=== PATIENT | male | born 1930 | race Caucasian/White ===

== ENCOUNTER 2018-11-26 08:59 | Inpatient (IN) ==
[2018-11-26] MEDS ORDERED: LEVSIN-SL SL ONE (09:27)
[2018-11-26] MEDS ORDERED: PROTONIX IV ONE (09:27)
[2018-11-26] MEDS ORDERED: SODIUM CHLORIDE 0.9% INJ ONE (09:27)
[2018-11-26] MEDS ORDERED: NS 1,000 ML IV ONE (09:28)
[2018-11-26] MEDS ORDERED: G.I. COCKTAIL PO ONE (09:28)
--- NOTE | 2018-11-26 09:41 | Diag Imaging Result Doc PS360 ---
EXAM: CHEST-1 VIEW HISTORY: weakness TECHNIQUE: Portable chest single view COMPARISON: 10/29/2015 FINDINGS: The lungs are well hyperexpanded. The heart is mildly enlarged. The vessels are not distended. There are no infiltrates. No effusion identified. 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 IMPRESSION: Mild cardiomegaly with hyperexpanded lungs. Electronically signed by Felix Gramajo 11/26/2018 9:39 AM
[2018-11-26 09:44] LABS: BASO# 0.03 X1000 (0.0-0.2); BASO% 0.4 % (0.0-0.8); EOS# 0.13 X1000 (0.0-0.7); EOS% 1.6 % (0.0-10.0); HEMATOCRIT 46.1 % (42.0-52.0); HEMOGLOBIN 15.4 g/dL (14.0-18.0); IMM GRAN# 0.03 X1000 (0.0-0.04); IMM GRAN% 0.4 % (0.0-0.5); LYMPH# 1.24 X1000 (1.2-3.4); LYMPH% 14.8 % (20.5-51.1); MCH 29.6 PG (27-31); MCHC 33.4 g/dL (33-37); MCV 88.7 FL (81-99); MONO# 1.73 X1000 (0.11-0.59); MONO% 20.7 % (1.7-9.3); MPV 10.8 FL (7.4-10.4); NEUT# 5.21 X1000 (1.4-6.5); NEUT% 62.1 % (42.2-75.2); PLT 291 X1000 (130-400); RDW 13.8 % (11.5-14.5); WBC 8.37 X1000 (4.8-10.8)
--- NOTE | 2018-11-26 09:45 | PROVIDER DOCUMENTATION ---
HPI-General Adult - General Chief Complaint: Diarrhea Stated Complaint: DIARRHEA Time Seen by Provider: 11/26/18 09:40 Source: patient, family Allergies/Adverse Reactions: Patient Allergies Allergy/AdvReac Type Severity Reaction Status Date / Time latex AdvReac ITCHING Verified 11/26/18 09:18 Home Medications: Home Medication List Medication Instructions Recorded Confirmed Last Taken Type Lisinopril 20 mg PO DAILY 02/09/18 11/26/18 07/27/18 07:00 History Warfarin [Coumadin] 3 mg PO DAILY 02/09/18 11/26/18 02/08/18 21:00 History Alprazolam [Xanax] 0.5 mg PO QHS 07/27/18 11/26/18 07/26/18 History Atenolol/Chlorthalidone 1 each PO DAILY 07/27/18 11/26/18 07/27/18 07:00 History [Atenolol-Chlorthalidone 50-25] Digoxin [Digitek] 125 mcg PO DAILY #60 tab 07/29/18 11/26/18 Unknown Rx - History of Present Illness -Gen Adult Nature of Presenting Problems: Pt. is [address] Osorio that presents with c/o 4 weeks of diarrhea. Pt. has been seen by his PCP and is taking immodium. He has a Hx of stomach CA and a AAA. He denies any pain or SOB. Pt. is reported to have gone to the bathroom 11 times in the last 6 hours with diarrhea. Pt. was recently on an antibiotic but family isn't sure why. Family at bedside reports he has been so weak that he has fallen several times in the last week. Family reports bruising to both right and left ribs. There are no other complaints reported at time of exam. Location of Pain/Injury: reports: none. denies: head, face, mouth, neck, chest , upper extremity, hand(s), abdomen, back, pelvis, genitalia, lower extremity, feet, upper body, lower body, generalized, other Pain Radiation: reports: no radiation. denies: arm(s), back, buttocks, chest, epigastric, feet, groin, jaw, flank (L), legs (lower), LLQ, LUQ, neck, periumbilical, flank (R), RLQ, RUQ, shoulder(s), scapula, scrotal, sternal notch , suprapubic, legs (upper), urethral, vaginal, other Quality of Pain: reports: none. denies: burning, sharp, tightness Severity: reports: severe. denies: mild, moderate Onset/Duration: reports: gradual, other (4 weeks) Timing: reports: still present, constant, changing over time, getting worse. denies: improving, gone now, intermittent Context/Activities at Onset: reports: light activity, recent trauma history ( recent falls). denies: recent emotional stress, possible bad food, sleep Modifying Factors: improves with: nothing Associated Symptoms: reports: diarrhea, malaise, weakness. denies: denies symptoms, anxiety, arm pain, back/neck pain, chest pain, constipation, cough, diaphoresis, dizziness, EENT symptoms, fatigue, fever/chills, genitourinary problems, headaches, heartburn, joint pain, loss of appetite, muscle aches, sinus congestion/drainage, nausea, rash, seizure, shortness of breath, sensory/ motor loss, pain with inspiration, swelling/mass in abdomen, syncope, vomiting, trouble walking, other Similar Symptoms Previously?: Yes Recently seen or treated by another doctor?: Yes Review of Systems - Adult - REVIEW OF SYSTEMS - ADULT Constitutional: reports: no symptoms reported Eyes: reports: no symptoms reported Ears, Nose, Mouth & Throat: reports: no symptoms reported Cardiovascular: reports: no symptoms reported Respiratory: reports: no symptoms reported Gastrointestinal: reports: see HPI, abdominal pain, diarrhea. denies: constipation, difficulty swallowing, vomiting Genitourinary: reports: no symptoms reported Musculoskeletal: reports: no symptoms reported Integumentary: reports: see HPI, other (Bruising noted to bilateral lateral chest osborne.). denies: hair loss, itching, rash Neurological: reports: no symptoms reported Psychiatric: reports: no symptoms reported Past History - Adult - PAST MEDICAL HISTORY-ADULT Review of Records: reports: Old Records Reviewed, Nursing Assessment Review, Medications Reviewed, Social history reviewed & non-contributory. Major Childhood Illnesses: reports: denies history Cardiovascular: reports: HTN Respiratory: reports: denies history Gastrointestinal: reports: denies history Obstetrical/Gynecological: reports: denies history Genitourinary: reports: denies history Musculoskeletal: reports: denies history Neurological: reports: denies history Psychiatric: reports: denies history Endocrine/Immune: reports: denies history Other Conditions: reports: denies history - PRIOR SURGERIES/PROCEDURES Surgical/Procedure History: reports: hernia repair - IMMUNIZATION STATUS Childhood Immunizations: See Nurse Assessment Flu Vaccine: See Nurse Assessment - FAMILY HISTORY Family History: reviewed, not pertinent - SOCIAL HISTORY Smoking: quit greater than 1 year Physical Exam-General - PHYSICAL EXAM-ADULT Initial Vital Signs Reviewed: Yes - CONSTITUTIONAL General Appearance: alert, mild distress, cachetic, thin. negative: anxious, slow to respond, obtunded, combative - EYES Eyes: PERRL/EOMI, pink conjunctivae. negative: conjuctival exudate, scleral icterus, subconjunctival hemorrhage - HEAD, EARS, NOSE, MOUTH & THROAT HENMT: normocephalic/atraumatic, moist mucous membranes. negative: angioedema, frontal tenderness, maxillary tenderness - NECK Neck: non-tender, full range of motion, supple, normal inspection. negative: lymphadenopathy, trachial deviation, thyromegaly - RESPIRATORY Respiratory: lungs clear, normal breath sounds. negative: crackles, rales, rhonchi, stridor, wheezing - CARDIOVASCULAR Cardiovascular: regular rate, rhythm, no edema, no JVD, bradycardia. negative: extra beats, friction rub, irregularly irregular - GASTROINTESTINAL (ABDOMEN) Abdominal Exam: non tender, soft, abnormal bowel sounds (Hyperactive). negative : distended, guarding, rigid, rebound, tenderness, hernia, mass - LYMPHATIC Lymphatic: no adenopathy. negative: axilla node tender, cervical node tenderness - MUSCULOSKELETAL Back Exam: normal inspection, no CVA tenderness, no vertebral tenderness. negative: decreased range of motion, swelling, vertebral tenderness Extremity: normal range of motion, non-tender, normal inspection. negative: deformity, erythema, inflammation, swelling, tenderness Peripheral Pulses: radial (R): 2+, radial (L): 2+ - SKIN Integumentary: ecchymosis (Bilateral lateral chest wall bruising.), pallor. negative: normal turgor, cyanosis, diaphoresis, erythema, rash, swelling, tenderness - NEUROLOGIC Neurologic: grossly normal, no motor/sensory deficits. negative: aphasia, facial droop, focal weakness, motor weakness, sensory deficit - PSYCHIATRIC Psych/Mental Status: normal mood/affect, normal thought content, normal thought process, oriented x 3. negative: anxious, paranoid, tearful Progress - PLAN OF CARE/RESULTS Progress/Plan/Lab Results: Vital Signs - 8 hr 11/26/18 09:21 Temperature 97.8 F Pulse Rate 56 L Respiratory Rate 20 Blood Pressure 79/54 Orders Category Date Time Status Saline Loc NOW Care 11/26/18 09:25 Active CHEST-1 VIEW [RAD] Stat Exams 11/26/18 09:26 Taken BLOOD CULTURE [BLDCUL] Stat Lab 11/26/18 09:26 Uncollected C DIFF ANTIGEN [STOOL] Stat Lab 11/26/18 09:27 Uncollected C DIFF TOXIN [STOOL] Stat Lab 11/26/18 09:27 Uncollected CBC WITH ELECTRONIC DIFF [HEME] Stat Lab 11/26/18 09:23 Results CK PROFILE [SP CHEM] Stat Lab 11/26/18 09:23 Received COMPREHENSIVE METABOLIC PANEL [CHEM] Stat Lab 11/26/18 09:23 Received CRP HIGH SENSITIVITY Stat Lab 11/26/18 09:23 Received LACTATE, PLASMA [CHEM] Stat Lab 11/26/18 09:23 Received LIPASE [CHEM] Stat Lab 11/26/18 09:23 Received PROTIME WITH INR [COAG] Stat Lab 11/26/18 09:23 Received PTT [COAG] Stat Lab 11/26/18 09:23 Received SED RATE [HEME] Stat Lab 11/26/18 09:33 Uncollected TROPONIN T Stat Lab 11/26/18 09:23 Received URINALYSIS W/POSS RFLX CULT [URINALYSIS] Stat Lab 11/26/18 09:26 Uncollected 0.9% Sodium Chloride Inj [Ns] 1,000 ml Med 11/26/18 09:28 Active IV 125 mls/hr Hyoscyamine Subl [Levsin-Sl] Med 11/26/18 09:27 Discontinued 0.125 mg SL NOW ONE Lido/[place]ona Alk/Al&mg Hydrox [G.i. Cocktail] Med 11/26/18 09:28 Discontinued 30 ml PO NOW ONE Pantoprazole [Protonix] Med 11/26/18 09:27 Discontinued 40 mg IV NOW ONE Sodium Chloride 0.9% Med 11/26/18 09:27 Discontinued 10 ml INJ NOW ONE EKG [EKG] Stat Ther 11/26/18 09:25 Ordered Laboratory Tests 02/11/26/18 11/26/18 09:23 09:23 09:23 WBC 8.37 RBC 5.20 Hgb 15.4 Hct 46.1 MCV 88.7 MCH 29.6 MCHC 33.4 RDW Std Deviation 13.8 Plt Count 291 MPV 10.8 H Immature Gran % (Auto) 0.4 Neut % (Auto) 62.1 Lymph % (Auto) 14.8 L [place] % (Auto) 20.7 H Eos % (Auto) 1.6 Baso % (Auto) 0.4 Immature Gran # (Auto) 0.03 Neut # (Auto) 5.21 Lymph # (Auto) 1.24 [place] # (Auto) 1.73 H Eos # (Auto) 0.13 Baso # (Auto) 0.03 ESR PT INR PTT (Actin FS) Sodium Potassium Chloride Carbon Dioxide Anion Gap BUN Creatinine Estimated GFR/1.73 m2 BUN/Creatinine Ratio Glucose Calculated Osmolality Calcium Total Bilirubin AST ALT Alkaline Phosphatase Creatine Kinase Creatine Kinase Index CK-MB (CK-2) Troponin T 0.036 C-React Prot High Sens Total Protein Albumin Globulin Albumin/Globulin Ratio Lipase Plasma Lactate 1.1 Urine Source Urine Color Urine Turbidity Urine pH Ur Specific [place] Urine Protein Ur Glucose (Stick) Ur Ketones (Stick) Urine Blood Urine Nitrite Urine Bilirubin Urobilinogen Dipstick Urine Leukocytes Urine WBC (Auto) Urine RBC (Auto) U Epithel Cells (Auto) Urine Bacteria (Auto) 11/26/18 11/26/18 11/26/18 09:23 09:23 09:23 WBC RBC Hgb Hct MCV MCH MCHC RDW Std Deviation Plt Count MPV Immature Gran % (Auto) Neut % (Auto) Lymph % (Auto) [place] % (Auto) Eos % (Auto) Baso % (Auto) Immature Gran # (Auto) Neut # (Auto) Lymph # (Auto) [place] # (Auto) Eos # (Auto) Baso # (Auto) ESR PT 42.3 H INR 4.07 PTT (Actin FS) 104.7 H Sodium 132 L Potassium 2.8 L Chloride 96 L Carbon Dioxide 22 L Anion Gap 14 BUN 70 H Creatinine 2.1 H Estimated GFR/1.73 m2 30 BUN/Creatinine Ratio 33 Glucose 103 Calculated Osmolality 285 Calcium 9.1 Total Bilirubin 0.85 AST 37 H ALT 18 Alkaline Phosphatase 59 Creatine Kinase 478 H Creatine Kinase Index 1.4 CK-MB (CK-2) 6.62 H Troponin T C-React Prot High Sens > 10.000 Total Protein 7.1 Albumin 3.7 Globulin 3.4 Albumin/Globulin Ratio 1.1 Lipase 15 Plasma Lactate Urine Source Urine Color Urine Turbidity Urine pH Ur Specific [place] Urine Protein Ur Glucose (Stick) Ur Ketones (Stick) Urine Blood Urine Nitrite Urine Bilirubin Urobilinogen Dipstick Urine Leukocytes Urine WBC (Auto) Urine RBC (Auto) U Epithel Cells (Auto) Urine Bacteria (Auto) 11/26/18 11/26/18 09:23 10:26 WBC RBC Hgb Hct MCV MCH MCHC RDW Std Deviation Plt Count MPV Immature Gran % (Auto) Neut % (Auto) Lymph % (Auto) [place] % (Auto) Eos % (Auto) Baso % (Auto) Immature Gran # (Auto) Neut # (Auto) Lymph # (Auto) [place] # (Auto) Eos # (Auto) Baso # (Auto) ESR 52 H PT INR PTT (Actin FS) Sodium Potassium Chloride Carbon Dioxide Anion Gap BUN Creatinine Estimated GFR/1.73 m2 BUN/Creatinine Ratio Glucose Calculated Osmolality Calcium Total Bilirubin AST ALT Alkaline Phosphatase Creatine Kinase Creatine Kinase Index CK-MB (CK-2) Troponin T C-React Prot High Sens Total Protein Albumin Globulin Albumin/Globulin Ratio Lipase Plasma Lactate Urine Source CLEAN CATCH Urine Color YELLOW Urine Turbidity CLEAR Urine pH 5.0 Ur Specific [place] 1.007 Urine Protein TRACE A Ur Glucose (Stick) NEGATIVE Ur Ketones (Stick) NEGATIVE Urine Blood SMALL A Urine Nitrite NEGATIVE Urine Bilirubin NEGATIVE Urobilinogen Dipstick NORMAL Urine Leukocytes NEGATIVE Urine WBC (Auto) <10 Urine RBC (Auto) <10 U Epithel Cells (Auto) <10 Urine Bacteria (Auto) NEGATIVE Discussed results and plan of care with patient and family. Both verbalizes understanding and agree with plan. Result Diagrams: 11/26/18 09:23 11/26/18 09:23 - EKG 1 Time of EKG reading by physician:: 09:58 EKG Read and Signed by:: Colby Keller EKG Interpretation (*Must complete 3 of following elements*): Abnormal Rate: 61 Rhythm: A-fib with permature ventricular or aberrantly conducted complexes ST Wave: non-specific ST changes - XRAY 1 XRAY Study: Chest ([facility] [address], [address], [place] [address] Department of Imaging Patient: JUVENTINO DÍAZ Date: MR#: [id number] : 1930DM Status: REG ERAt#: [id number] Age/ Sex: 88/MRoom/Bed: Loc: ED Ordering Physician: Rosa Barba Family Physician: Santino Osorio Reason for Procedure: weakness Signed EXAM: CHEST-1 VIEW HISTORY: weakness TECHNIQUE: Portable chest single view COMPARISON: 10/29/2015 FINDINGS: The lungs are well hyperexpanded. The heart is mildly enlarged. The vessels are not distended. There are no infiltrates. No effusion identified. 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 IMPRESSION: Mild cardiomegaly with hyperexpanded lungs. Electronically signed by Felix Gramajo 11/26/2018 9:39 AM 11/26/18938 Interpreting Physician: Felix Gramajo MD Dictated Date/Time: 11/26/18937 cc: Rosa Barba; Santino Osorio) XRAY Interpretation: See note - CT/MRI 1 CT Study: Abdomen, Pelvis, Thorax ([facility] [address] [facility], [address], [place] [address] Department of Imaging Patient: JUVENTINO DÍAZ Date: 11/26/18MR#: [id number] : 1930DM Status: REG ERAt#: [id number] Age/Sex: 88/MRoom/Bed: Loc: ED Ordering Physician: Rosa Barba Family Physician: Santino Osorio Reason for Procedure: severe diarrhea for 4 weeks/fall rib bruising Signed EXAM: CT THORAX/ABD/ PELVIS W/O CON HISTORY: severe diarrhea for 4 weeks/fall rib bruising TECHNIQUE: 1. CT chest without contrast 2. CT abdomen and pelvis without contrast COMPARISON: Abdomen and pelvis from 01/27/2018 FINDINGS: Chest: No pleural effusions. Tiny pericardial effusion. Prominent atherosclerosis. No aortic aneurysm. There is severe emphysema. There are scattered granuloma. No consolidation. There is vascular distention. No pneumothoraces. No lung contusion. 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 Abdomen and pelvis : There are large calcified gallstones. No adjacent inflammation. These are unchanged the prior study. Normal noncontrasted liver, spleen, pancreas, and adrenal glands. Soft tissue prominence/adenopathy posterior to the body of the pancreas and medial to the stomach was present on the prior exam. This is slightly smaller.. No renal stones or hydronephrosis. There is a large left renal cyst. There is a large abdominal aortic aneurysm. This measures 7.4 cm in transverse diameter and 7.3 cm in AP diameter. This is similar to the prior exam. Each iliac artery is dilated similar to the prior exam. Retroperitoneal adenopathy medial to the left kidney is smaller than on the prior study. No bowel obstruction. There is fluid throughout the colon. There are scattered colonic diverticula. No abscess. Urinary bladder is distended and appears normal. The prostate is not enlarged. 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 IMPRESSION: Chest: 1. Severe emphysema 2. There is evidence of a prior granulomatous infection Abdomen and pelvis: 1. Cholelithiasis 2. Interval decrease in the abdominal adenopathy 3. Stable large abdominal aortic aneurysm 4. Possible enteritis with fluid throughout multiple small bowel loops and colon This exam was performed using automated exposure control, adjustment of mA or kV according to patient size, and/or use of iterative reconstruction technique. Electronically signed by Felix Gramajo 11/26/2018 11:58 AM 1158 Interpreting Physician: Felix Gramajo MD Dictated Date/Time: 11/26/18 1151 cc: Rosa Barba; Santino Osorio) CT Results: See note - CONSULTS/PCP/HOSPITALIST Notification #1 *Consult/PCP/Hospitalist*: April Murry Time Discussed: 12:23 Reason/Comments: Admission Consult Disposition: Will see in ED, Admit Departure - Departure Date of Disposition Decision: 11/26/18 Time of Disposition Decision: 10:15 DIAGNOSIS: Hypokalemia, Dehydration, Pericardial effusion, Enteritis Acute renal failure Qualifiers: Acute renal failure type: unspecified Qualified Code(s): N17.9 - Acute kidney failure, unspecified GI bleed Qualifiers: GI bleed type/associated pathology: unspecified gastrointestinal hemorrhage type Qualified Code(s): K92.2 - Gastrointestinal hemorrhage, unspecified Hypotension Qualifiers: Hypotension type: unspecified hypotension type Qualified Code(s): I95.9 - Hypotension, unspecified Disposition: ADMITTED INPATIENT 09 Certified Medical Emergency: Emergent Condition: Serious Referrals and Follow-Ups: Santino Osorio [Primary Care Provider] - - Critical Care Note This patient required my direct & personal management of CC.: Yes Total Time (mins): 35 Critical Care Statement: This patient required my direct personal management to treat or rule out processes, the absence of which, could potentiallly result in sudden, clinically significant life or limb threatening deterioration. Attestation - Physician/ OSMIN Attestation Patient care was provided by Advanced Practice Provider:: Yes Advanced Practice Provider:: Rosa Barba Advanced Practice Provider documentation review:: The Mid-level provider documentation, treatment plan and medical decision making was reviewed by the physician who agrees with all treatment and medical decision making by the P. The physician spent face to face time with patient:: No Advanced Practice Provider documentation review:: Supervising physician onsite and consulted in the evaluation and care of this patient. The physician did not have a face to face encounter with the patient.
[2018-11-26 09:48] LABS: INR 4.07
[2018-11-26 10:04] LABS: ALB/GLOB RATIO 1.1; ALBUMIN 3.7 g/dL (3.5-5.0); CALCIUM 9.1 mg/dL (8.8-10.2); CREATININE 2.1 mg/dL (0.7-1.2); POTASSIUM 2.8 mmol/L (3.5-5.1); TOTAL BILIRUBIN 0.85 mg/dL (0.20-1.00); TOTAL PROTEIN 7.1 g/dL (6.3-8.3)
[2018-11-26] MEDS ORDERED: POTASSIUM CHLORIDE 20 MEQ/SWI 20 MEQ/100 ML IVPB IV ONE (10:07)
[2018-11-26 10:12] LABS: PROTIME 42.3 Seconds (11.0-16.0); PTT 104.7 Seconds (22.3-41.8)
[2018-11-26 10:26] LABS: CK INDEX 1.4 (0.0-2.5); CK-MB 6.62 ng/mL (0.0-5.0)
[2018-11-26 10:44] LABS: URINE SOURCE CLEAN CATCH
[2018-11-26 11:10] LABS: BILIRUBIN URINE NEGATIVE (NEGATIVE); BLOOD URINE SMALL (NEGATIVE); COLOR YELLOW; GLUCOSE URINE NEGATIVE (NEGATIVE); KETONE URINE NEGATIVE (NEGATIVE); LEUKOCYTES URINE NEGATIVE (NEGATIVE); NITRITE URINE NEGATIVE (NEGATIVE); PROTEIN URINE TRACE mg/dL (NEGATIVE); SP GRAVITY URINE 1.007; TURBIDITY URINE CLEAR (CLEAR); UROBILINOGEN URINE NORMAL (NORMAL)
[2018-11-26 11:12] LABS: UR EPITHELIAL CELLS <10 /HPF (<10); URINE BACTERIA NEGATIVE /HPF; URINE RBC <10 /HPF (<10); URINE WBC <10 /HPF (<10)
--- NOTE | 2018-11-26 12:00 | Diag Imaging Result Doc PS360 ---
EXAM: CT THORAX/ABD/PELVIS W/O CON HISTORY: severe diarrhea for 4 weeks/fall rib bruising TECHNIQUE: 1. CT chest without contrast 2. CT abdomen and pelvis without contrast COMPARISON: Abdomen and pelvis from 01/27/2018 FINDINGS: Chest: No pleural effusions. Tiny pericardial effusion. Prominent atherosclerosis. No aortic aneurysm. There is severe emphysema. There are scattered granuloma. No consolidation. There is vascular distention. No pneumothoraces. No lung contusion. 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 Abdomen and pelvis: There are large calcified gallstones. No adjacent inflammation. These are unchanged the prior study. Normal noncontrasted liver, spleen, pancreas, and adrenal glands. Soft tissue prominence/adenopathy posterior to the body of the pancreas and medial to the stomach was present on the prior exam. This is slightly smaller.. No renal stones or hydronephrosis. There is a large left renal cyst. There is a large abdominal aortic aneurysm. This measures 7.4 cm in transverse diameter and 7.3 cm in AP diameter. This is similar to the prior exam. Each iliac artery is dilated similar to the prior exam. Retroperitoneal adenopathy medial to the left kidney is smaller than on the prior study. No bowel obstruction. There is fluid throughout the colon. There are scattered colonic diverticula. No abscess. Urinary bladder is distended and appears normal. The prostate is not enlarged. 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 IMPRESSION: Chest: 1. Severe emphysema 2. There is evidence of a prior granulomatous infection Abdomen and pelvis: 1. Cholelithiasis 2. Interval decrease in the abdominal adenopathy 3. Stable large abdominal aortic aneurysm 4. Possible enteritis with fluid throughout multiple small bowel loops and colon This exam was performed using automated exposure control, adjustment of mA or kV according to patient size, and/or use of iterative reconstruction technique. Electronically signed by Felix Gramajo 11/26/2018 11:58 AM
[2018-11-26] MEDS ORDERED: PROTONIX 80 MG in NS 80 ML IV SCH (13:00)
--- NOTE | 2018-11-26 14:44 | Diag Imaging Result Doc PS360 ---
EXAM: CT HEAD W/O CONTRAST HISTORY: multi falls has hit head r/o brain bleed TECHNIQUE: CT head without contrast COMPARISON: None. FINDINGS: There is a small amount of motion. No parenchymal hemorrhage. No epidural or subdural hematoma. No subarachnoid hemorrhage. There is atrophy with chronic microvascular ischemic changes. In No mass identified on this noncontrasted exam. No hydrocephalus. No skull fracture. IMPRESSION: No hemorrhage. Atrophy with chronic microvascular ischemic changes. This exam was performed using automated exposure control, adjustment of mA or kV according to patient size, and/or use of iterative reconstruction technique. Electronically signed by Felix Gramajo 11/26/2018 2:42 PM
--- NOTE | 2018-11-26 15:16 | HISTORY AND PHYSICAL ---
PRIMARY CARE PROVIDER: Dr. Santino Osorio. RESIDENTIAL MENTAL HEALTH WORKER: Handy Persaud MD ONCOLOGIST: Patrick Leavitt MD CHIEF COMPLAINT: Eleven episodes of diarrhea this a.m., weakness and multiple falls. HISTORY OF PRESENT ILLNESS: Mr. Melendez is an 88-year-old male who carries a past medical history of stomach cancer, continuing treatment with Dr. Leavitt, atrial fibrillation, chronic bradycardia, hypertension, macular degeneration, superficial bladder cancer status post resection and large abdominal aortic aneurysm that is stable by CT. The patient and family at bedside report about 3 to 4 weeks ago he had a sinus infection. He was placed on antibiotics and since that time, he has been having multiple episodes of diarrhea per day. He has been taking Imodium whenever he has these bouts of diarrhea. With the falls, he believes that he has hit his head with no loss of consciousness. He does have bruising to bilateral ribs. Workup in the ED revealed dehydration, hypokalemia. Chest, abdomen and pelvis CT showed severe emphysema, stable large abdominal aortic aneurysm and possible enteritis with fluid throughout multiple small bowel loops and colon. He was also found to be hypokalemic and acute kidney injury. He was given IV bolus and continued on IV hydration. He did have an episode of hemoptysis that was positive for gastric occult. He was given a bolus of Protonix and will continue on PPI b.i.d. and several stool samples have been sent off for C difficile, WBCs, ova and parasites. We will admit him to [facility]. The patient is slightly bradycardic and was hypotensive in the 70s upon arrival. He has improved with fluid bolus. Blood pressure is in the mid 90s. PAST MEDICAL HISTORY: 1. Bradycardia. 2. Atrial fibrillation on anticoagulation with Coumadin. 3. Lymphoma. 4. Macular degeneration. 5. Superficial bladder cancer status post resection. 6. Abdominal aortic aneurysm. 7. Bladder cancer with treatment with Dr. Leavitt. PAST SURGICAL HISTORY: 1. Hernia repair. 2. Lymph node biopsy. 3. Bone marrow biopsy. SOCIAL HISTORY: He is a . He lives alone in [place]. He quit smoking some time ago. No alcohol or illicit drug use. He has a son who lives in town at bedside as well as daughter at bedside now, who lives in [place]. FAMILY HISTORY: Noncontributory. ALLERGIES: Latex. HOME MEDICATIONS: 1. Xanax 0.5 mg p.o. at bedtime. 2. Atenolol/chlorthalidone 1 each p.o. daily. 3. Lisinopril 20 mg p.o. daily. 4. Coumadin 3 mg p.o. daily. 5. Digoxin 125 mcg p.o. daily. REVIEW OF SYSTEMS: A 14 point review of systems completely negative except for those mentioned in HPI. PHYSICAL EXAMINATION: VITAL SIGNS: Temperature is 97.8 degrees, heart rate 56, respirations 23, blood pressure 96/61, O2 is 91% on room air. GENERAL: Mr. Melendez is an 88-year-old male who currently is on bedpan , in no acute distress. HEENT: Atraumatic, normocephalic. PERRL. NECK: Supple. Trachea midline. CV: S1, S2 appreciated. RESPIRATORY: Lung sounds clear to excursion. Nonlabored breathing. GI: Soft, tender, nondistended. Positive bowel sounds 4 quadrants. EXTREMITIES: No lower extremity edema. No clubbing or cyanosis noted. SKIN: Appears to be warm, dry, and intact. However, he does have bilateral bruising to his rib area. Skin tear to his right forearm that is now dressed and covered. NEUROLOGIC: No focal deficits noted. Patient is alert and oriented. Follows commands. Moves all extremities. DIAGNOSTIC DATA: Chest, abdomen and pelvis CT severe emphysema. There is evidence of prior granulomatous infection: interval decrease in abdominal adenopathy. Stable large abdominal aortic aneurysm, possible enteritis with fluid throughout multiple small bowel loops and colon. LABORATORY DATA: White count 8, hemoglobin and hematocrit 15 and 46, platelet count is 291,000. Sedimentation rate is 52. Coags PT 42.3, INR 4.07, PTT 104.7. Chemistry: Sodium 132, potassium 2.8, BUN 70, creatinine 2.1, blood glucose 103 , AST 37, ALT 18. CK 478, CKI 1.4, CK-MB 6.62. Plasma lactate was 1.1. Troponin 0.036. Lipase was 15. Urinalysis shows trace protein, small blood, negative for bacteria. ASSESSMENT AND PLAN: 1. Multiple episodes of diarrhea. CT scan shows enteritis. The patient was recently placed on antibiotic for sinus infection 3 to 4 weeks ago. He has had this diarrhea around the time he started the antibiotic. He was told to take Imodium and yogurt. He has had 11 episodes of diarrhea over the last 6 hours. We will culture his stool specimen to check for occult blood, WBC, ova and parasites, Clostridium difficile colitis. 2. Fluid volume depletion secondary to diarrhea. We will continue with intravenous fluids. 3. Electrolyte imbalance with hypokalemia, hyponatremia. We will continue with intravenous fluids. Recheck in the a.m. 4. Acute kidney injury. We will hold any nephrotoxic medications. Continue with intravenous hydration. Recheck his kidney function in the a.m. 5. Hypotension, now normotensive. We will hold any blood pressure medications. 6. Bradycardia. The patient does have a history of bradycardia. We will hold off on his metoprolol for today and reassess to pick back up issues tomorrow and continue on telemetry. Recheck an EKG in the a.m. 7. Atrial fibrillation history. We will continue his digoxin in the a.m. 8. Weakness with multiple falls reported over the last 3 to 4 weeks, at least a few times a day. He has hit his head before. He does not believe there was any loss of consciousness. Given the patient's elevated INR and being on Coumadin, we will go ahead and check a head CT to rule out any bleeding. 9. Stomach cancer history. We will let Dr. Leavitt know that the patient is in the hospital. 10. Macular degeneration. 11. Stable abdominal aortic aneurysm. 12. Emphysema as evident by CT of the chest. We will do DuoNeb p.r.n. 13. Mild hypoxia. We will provide the patient with supplemental O2. O2 saturations were 90 to 91% on room air. 14. Further recommendations to follow physician evaluation, laboratory, and diagnostic data. Dictated by PATTI Carias for Phil Murry MD cc: Phil Murry MD I have seen and examined Mr Melendez today, son was at the bedside. I have reviewed his labs and imaging studies. Mr Melendez presents with severe dehydration due to diarrhea. Patient had a planned outpatient EGD/Colonoscopy with Dr. Persaud this coming Wednesday. I agree with the above HPI and the plan reflects my opinion discussed with the SPECIAL DELIVERY WORKER. Plan has been discussed with the patient and his son. [facility]
[2018-11-26] MEDS ORDERED: ZOFRAN IV PRN (15:44)
[2018-11-26 16:42] LABS: C REACTIVE PROT QUANT 153.93 mg/L (0.00-5.00)
[2018-11-26 21:26] LABS: CK INDEX 1.4 (0.0-2.5); CK-MB 6.08 ng/mL (0.0-5.0)
[2018-11-26] MEDS: XANAX PO SCH (21:57)
[2018-11-27] MEDS ORDERED: STERILE WATER INJ. INJ ONE (00:55)
[2018-11-27] MEDS ORDERED: GEODON IM ONE (00:55)
[2018-11-27] MEDS ORDERED: IMODIUM PO ONE (02:04)
[2018-11-27 06:19] LABS: INR 4.03
[2018-11-27 06:27] LABS: BASO# 0.03 X1000 (0.0-0.2); BASO% 0.4 % (0.0-0.8); EOS# 0.08 X1000 (0.0-0.7); EOS% 1.1 % (0.0-10.0); HEMATOCRIT 44.4 % (42.0-52.0); HEMOGLOBIN 15.2 g/dL (14.0-18.0); IMM GRAN# 0.03 X1000 (0.0-0.04); IMM GRAN% 0.4 % (0.0-0.5); LYMPH# 1.19 X1000 (1.2-3.4); MCH 30.4 PG (27-31); MCHC 34.2 g/dL (33-37); MCV 88.8 FL (81-99); MONO# 1.34 X1000 (0.11-0.59); MPV 10.4 FL (7.4-10.4); NEUT# 4.77 X1000 (1.4-6.5); NEUT% 64.1 % (42.2-75.2); PLT 297 X1000 (130-400); PROTIME 41.9 Seconds (11.0-16.0); PTT 109.6 Seconds (22.3-41.8); WBC 7.44 X1000 (4.8-10.8)
[2018-11-27 06:47] LABS: EOS 1 % (1-10); LYMPHS 17 % (21-51); MONO 17 % (1-9); SEGS 65 % (42-75)
[2018-11-27 06:51] LABS: ALB/GLOB RATIO 1.2; ALBUMIN 3.8 g/dL (3.5-5.0); CALCIUM 9.1 mg/dL (8.8-10.2); CREATININE 1.4 mg/dL (0.7-1.2); POTASSIUM 2.6 mmol/L (3.5-5.1); TOTAL BILIRUBIN 0.74 mg/dL (0.20-1.00); TOTAL PROTEIN 6.9 g/dL (6.3-8.3)
[2018-11-27] MEDS: LANOXIN PO SCH (08:51)
[2018-11-27] MEDS ORDERED: KLOR-CON PO ONE (09:54)
[2018-11-27] MEDS ORDERED: POTASSIUM CHLORIDE 40 MEQ/SWI 40 MEQ/100 ML IVPB IV ONE (09:55)
--- NOTE | 2018-11-27 10:26 | Diag Imaging Result Doc PS360 ---
EXAM: CHEST-PORTABLE - 11/27/2018 HISTORY: follow up TECHNIQUE: Portable chest COMPARISON: 11/26/2018 FINDINGS: Heart size appears the upper range of normal and decreased compared to prior. There are apparent COPD changes. There are no other acute changes identified. IMPRESSION: Interval decrease in heart size, which now appears upper normal. Apparent COPD changes. No other acute changes. Electronically signed by Lloyd Melissa 11/27/2018 10:23 AM
--- NOTE | 2018-11-27 13:54 | CONSULTATION ---
DATE OF CONSULTATION: 11/27/2018 CONSULTING PHYSICIAN: Phil Murry MD REASON FOR CONSULT: Diarrhea. HISTORY: This is 88-year-old gentleman, a patient of Dr. Santino Osorio. Dr. Persaud is his table attendant, and oncologist is Dr. Patrick Leavitt. 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 His last dose was about 2 months ago. He is currently on treatment every 3 months. He started having some loose bowel movements apparently 2 days ago. He had 11 bowel movements in 1 day. Since admission this morning, he has had 4 loose watery stools. He has not had any abdominal pain or abdominal cramps. He is not feeling well. He has had near syncopes and he has had falls. The patient is currently being helped by his son. The patient's himself has history of macular degeneration and has poor eyesight. He tells me that he recently had episode of upper respiratory infection and received antibiotics or other treatment, and since then he has had diarrhea. He had seen Dr. Persaud at his office and was scheduled to have a colonoscopy in fact tomorrow. He was admitted, and investigation revealed evidence of enteritis on CT scan of the abdomen. The son tells me that last PET scan has shown improvement in his lymphoma. Apparently it had shrunk. Most of the information was obtained from the son. He tells me that he has not had any fever or chills. He denied any abdominal pain or abdominal cramps. He has not any blood or mucus in his stool. He has not gone out to eat or had anybody else in the family members who was sick with the same ailment. He has not had any chest pain, shortness of breath, but he has been very weak, lethargic, and has had near syncopal episode. So far, C difficile toxin was negative. O P was negative. However, he has had white cells in his stool and Hemoccult was also positive. Culture was not done. Blood culture was negative. PAST MEDICAL HISTORY: Significant for chronic atrial fibrillation and he is on Coumadin, history of lymphoma as mentioned above, carries a diagnosis of bladder CA status post resection. He also has abdominal aortic aneurysm which is being followed. SURGERY: He has had a bone marrow biopsy, lymph node biopsy, and herniorrhaphy. MEDICATION: Prior to hospitalization, he was on Xanax, Atenolol, chlorthalidone, digoxin, lisinopril, and Coumadin. ALLERGIES: No known drug allergies. SOCIAL HISTORY: He lives by himself, has been very the independent. However, currently he has required assistance. His son lives close by, and his daughter is from out of town. He does not smoke. Does not drink. No illicit drugs. FAMILY HISTORY: Noncontributory. REVIEW OF SYSTEMS: As per HPI as above. PHYSICAL EXAMINATION: General: On examination, a very pleasant white gentleman. He is conscious, alert. Appears to be in no distress. Vitals: Temperature 97.4 degrees, pulse 69 per minute regular, breathing 20, blood pressure 111/63. Height/weight: He weighs about 127 pounds, is 5 feet 8 inches tall. HEENT: Head is atraumatic, normocephalic. Eyes: Conjunctivae are normal. Sclerae anicteric. Nares are patent. No discharge. Mouth: Mucosa is moist. Throat is normal. Neck: Neck is supple with no lymphadenopathy or thyromegaly. Chest: Bilaterally symmetrical. It is moving with respirations. Breath sounds audible bilaterally. No rhonchi or crepitations could be heard. Heart: S1, S2 audible. No murmur could be appreciated. Abdomen: Full, soft, nontender. No mass or visceromegaly noted. Bowel sounds are audible. Extremities: No pedal edema, cyanosis, or clubbing was noted. Central nervous system: Grossly intact. No sensory or motor deficit. DIAGNOSTIC STUDIES: Labs reviewed, which showed WBC 7.44, hemoglobin 15.2, hematocrit 44.4, MCV 88.8, platelets were 297, sedimentation rate was 52. PTT 41.9, INR 4.03, PTT 109.6. Sodium 136, potassium was 2.6, chloride 98, bicarbonate 22, BUN is 52, creatinine 1.4 which was 2.1 yesterday. Transaminases: AST 45, ALT 20, alkaline phosphatase 61, total bilirubin was 0.74. CT scan of the abdomen and pelvis was done, which showed edematous loops of bowel suggestive of enteritis. Otherwise has intact aortic aneurysm and the adenopathy in the abdomen has shrunken. IMPRESSION: An 88-year-old gentleman, who has history of follicular lymphoma on treatment, has recently received antibiotics for sinus infection, has presented with diarrhea and has had no abdominal pain and no other symptoms except for syncopal episodes from dehydration. He has evidence of hypokalemia and mild metabolic acidosis, too. Possibilities are Clostridium difficile infections. C. difficile toxins were negative; however, other opportunistic infections are possibilities. I would proceed with stool culture and see if anything grows. In the meantime, treatment of lymphoma or the lymphoma itself could cause his diarrhea, too. From the treatment he may develop mucositis that could be causing the problem or lymphoma involving the bowels may be responsible for his diarrhea. He has had significant volume loss and electrolyte imbalances secondary to the diarrhea. I agree with the replenishing his electrolytes and continued hydration. In the meantime, wait for culture. If they are negative, he may benefit from antidiarrheal medications. I will reduce his PPI to once a day p.o., will be fine. Continue on a clear liquid diet. Dr. Persaud will be available tomorrow to pick him up for further treatment. cc: MD Santino Stapleton MD Michael Kelso, MD
--- NOTE | 2018-11-27 15:21 | PROGRESS NOTE ---
DATE: 11/27/2018 SUBJECTIVE: Patient resting comfortably in bed. OBJECTIVE: Vital Signs: As follows: Temperature 97.4, pulse 69, respirations 20, blood pressure 111/60, oxygen is 99%. HEENT: Atraumatic, normocephalic. Cardiovascular: S1, S2. Respiratory: Has evidence of good air entry bilaterally. Abdomen: Soft, nontender. No masses felt. Extremities: No evidence of edema. Central Nervous System: No obvious focal deficit noted. LABS: WBC 7.45, hematocrit is 44.4, with a platelet count of 297,000. INR is 4.03. Potassium is 2.6. BUN 54. Creatinine 1.4. AST 45, ALT 20. ASSESSMENT AND PLAN: 1. Acute diarrhea. Treat the patient symptomatically. Follow up on stool studies. 2. Acute kidney injury. Hydrate the patient with intravenous fluids. Follow up on renal function. 3. Hypokalemia. Replace potassium, check magnesium level. 4. Atrial fibrillation. Continue rate controlling agent as well as we will need to hold off on patient's Coumadin as patient's INR is very high. 5. COPD. Use nebulized bronchodilators as needed. 6. History of abdominal aortic aneurysm. Will evaluate with abdominal ultrasound. 7. DVT prophylaxis. SCDs. 8. GI prophylaxis. PPI. cc: Reid Scott MD
[2018-11-27] MEDS: HALDOL IM PRN ×2 (18:14→23:45)
[2018-11-27] MEDS: XANAX PO SCH (20:03)
[2018-11-28] MEDS ORDERED: PRILOSEC PO SCH (07:00)
[2018-11-28 07:59] LABS: BASO# 0.03 X1000 (0.0-0.2); BASO% 0.4 % (0.0-0.8); EOS# 0.09 X1000 (0.0-0.7); EOS% 1.1 % (0.0-10.0); HEMATOCRIT 44.1 % (42.0-52.0); HEMOGLOBIN 14.9 g/dL (14.0-18.0); IMM GRAN# 0.04 X1000 (0.0-0.04); IMM GRAN% 0.5 % (0.0-0.5); LYMPH% 14.5 % (20.5-51.1); MCHC 33.8 g/dL (33-37); MCV 88.9 FL (81-99); MONO# 1.68 X1000 (0.11-0.59); MONO% 20.4 % (1.7-9.3); MPV 10.7 FL (7.4-10.4); NEUT# 5.21 X1000 (1.4-6.5); NEUT% 63.1 % (42.2-75.2); PLT 300 X1000 (130-400); RBC 4.96 XMIL (4.7-6.1); RDW 14.1 % (11.5-14.5); WBC 8.25 X1000 (4.8-10.8)
--- NOTE | 2018-11-28 08:13 | EKG Report ---
Test Performed on : 11/26/2018 09:37:57 AM Test Reason : Weakness Blood Pressure : / mmHG Vent. Rate : 061 BPM Atrial Rate : 250 BPM P-R Int : 000 ms QRS Dur : 130 ms QT Int : 384 ms P-R-T Axes : 000 -56 165 degrees QTc Int : 386 ms Atrial fibrillation. with premature ventricular or aberrantly conducted complexes. and with ventricul ar escape complexes. Left axis deviation Nonspecific intraventricular block Nonspecific T wave abnormality Abnormal ECG When compared with ECG of 29-JUL-2018 06:49, Atrial fibrillation. has replaced Wide QRS rhythm. Unconfirmed Result
[2018-11-28 08:30] LABS: ANISOCYTOSIS OCCASIONAL; BANDS 1 % (0-1); EOS 3 % (1-10); LYMPHS 6 % (21-51); MONO 19 % (1-9); SEGS 67 % (42-75)
[2018-11-28 08:42] LABS: CALCIUM 9.2 mg/dL (8.8-10.2); CREATININE 1.3 mg/dL (0.7-1.2); POTASSIUM 2.7 mmol/L (3.5-5.1)
[2018-11-28] MEDS ORDERED: VITAMIN K 10 MG in NS 50 ML IV ONE (08:46)
--- NOTE | 2018-11-28 08:47 | EKG Report ---
Test Performed on : 11/27/2018 06:47:32 AM Test Reason : follow up Blood Pressure : / mmHG Vent. Rate : 080 BPM Atrial Rate : 075 BPM P-R Int : 000 ms QRS Dur : 128 ms QT Int : 356 ms P-R-T Axes : 000 -49 118 degrees QTc Int : 410 ms Atrial fibrillation. with a competing junctional pacemaker. Left axis deviation Nonspecific intraventricular block T wave abnormality, consider lateral ischemia Abnormal ECG When compared with ECG of 26-NOV-2018 09:37, (Unconfirmed) Sinus rhythm. is no longer with ventricular escape complexes. ST more depressed in Lateral leads T wave inversion more evident in Lateral leads Confirmed by Maye WOODS, Herson Hernandez ([id number]) on 11/28/2018 3:28:31 PM
[2018-11-28] MEDS ORDERED: SODIUM CHLORIDE 0.9% INJ SCH (09:15)
[2018-11-28] MEDS ORDERED: NS 1,000 ML IV SCH (09:15)
[2018-11-28] MEDS ORDERED: CALMOSEPTINE OINTMENT TOP PRN (09:49)
--- NOTE | 2018-11-28 10:09 | GASTROENTEROLOGY PROGRESS NOTE ---
DATE: 11/28/2018 SUBJECTIVE: The patient is resting in bed. I spoke to the patient's son at bedside. Patient is having diarrhea. He saw Dr. Persaud as an outpatient. He was scheduled for outpatient colonoscopy, but the patient had worsening diarrhea and came to the hospital. His stool studies so far have been negative. Culture is pending. His stool studies are showing moderate white cells. C difficile is negative. The patient has been on Imodium as an outpatient, but despite that, he is having diarrhea. OBJECTIVE: Vitals: Temperature of 97.6 degrees, pulse rate 64, respiratory rate 18, blood pressure 122/67, saturating 97% on room air. General Appearance: Thinly built , in no acute distress. HEENT: No pallor. No icterus. Neck: Supple. Abdomen: Soft, nondistended. No guarding. Extremities: No cyanosis, clubbing. Neurologic: He is awake, alert, answers questions. DIAGNOSTIC STUDIES: Hemoglobin 14.9, hematocrit 44.1, white count of 8.25, platelet count of 300,000. Sodium 130, potassium 2.7, chloride 96, bicarbonate 25, anion gap of 14, BUN of 41, creatinine 1.3, glucose of 113, calcium 9.2. AST 45, ALT 20, alkaline phosphatase 61, total protein is 6.9, albumin of 3.8. Lipase of 15. INR of 4.03, PT of 41.9, PTT of 109.6. Blood culture x2 negative at 48 hours. Vomiting also showed evidence of positive Gastroccult. His stool for occult blood was positive. IMPRESSION AND PLAN: 1. Diarrhea. Unclear etiology. We will follow the stool studies. We will schedule him for Flex sig/colonoscopy tomorrow with Dr. Persaud under anesthesia. We will try to reverse the INR. We will give him a dose of vitamin K. We will recheck the INR in the morning. In case the INR is more than 1.5, then he will need FFPs. The patient has large AAA; risk of procedure is high; Risks benefits indications and alternatives discussed with the patient and his son and they acknowledged understanding and agreed to proceed with the plan of care. 2. Acute kidney injury. We will start him on IV fluids. 3. Hypokalemia. This needs to be monitored and treated per the primary care team. 4. Atrial fibrillation. He is on Coumadin which has been withheld for a week but his INR is still high, so we will reverse with vitamin K. 5. Chronic obstructive pulmonary disease (COPD). Continue Bronchodilator therapy as needed. 6. History of abdominal aortic aneurysm. Aware.Being managed per Primary care team. 7. Gastrointestinal (GI) prophylaxis with proton pump inhibitors (PPIs). 8. Positive Gastroccult. Continue PPIs. 9. Deep vein thrombosis (DVT) prophylaxis with sequential compression devices ( SCDs). 10. Lymphoma. This is being treated by Dr. Leavitt as an outpatient. We will follow along. The above plans discussed with the patient and family members and all of the questions were answered. Please call us with any further questions. cc: MD Patrick Colindres MD Alan Walker, MD MTDD
[2018-11-28] MEDS: CULTURELLE PO SCH ×2 (10:12→20:44)
[2018-11-28] MEDS: HALDOL IM PRN (10:12)
[2018-11-28] MEDS: PROTONIX IV SCH ×2 (10:28→20:44)
[2018-11-28] MEDS: LANOXIN PO SCH (10:34)
[2018-11-28] MEDS ORDERED: GOLYTELY PO ONE (14:00)
--- NOTE | 2018-11-28 16:28 | Diag Imaging Result Doc PS360 ---
EXAM: US ABDOMEN-COMPLETE HISTORY: abdominal aortic aneurysm TECHNIQUE: Abdominal ultrasound COMPARISON: Recent CT FINDINGS: There is a large abdominal aortic aneurysm. This measures at least 7.4 cm in transverse diameter and 7.4 cm in AP diameter. There is thrombus along the anterior wall measuring 2.5 cm in greatest thickness. This is not measured at 90 degrees. No focal splenic normality. The common bile duct measures 5 mm. The pancreas is obscured. Normal left kidney. No hydronephrosis. Normal right kidney. No hydronephrosis. Spleen is poorly seen. Inferior vena cava is poorly seen. Patient was inappropriate with the housing installer and exam was ended early. IMPRESSION: Known abdominal aortic aneurysm. Electronically signed by Felix Gramajo 11/28/2018 4:26 PM
[2018-11-28] MEDS ORDERED: POTASSIUM CHLORIDE 20 MEQ/SWI 20 MEQ/100 ML IVPB IV SCH (17:30)
--- NOTE | 2018-11-28 18:32 | PROGRESS NOTE ---
DATE: 11/28/2018 SUBJECTIVE: The patient is resting comfortably in bed. OBJECTIVE: Vital signs: Temperature 97.6 degrees, pulse 71, respirations 18, blood pressure 143/70, and oxygen is 96%. HEENT: Atraumatic and normocephalic. Cardiovascular: S1, S2. Respiratory: He has evidence of good air entry bilaterally. Abdomen: Full. Nontender. No masses felt. Extremities: No evidence of edema. Central nervous system: No obvious focal deficit noted. LABORATORY: WBC is 8.25. Hematocrit 44.1 with a platelet count of 300,000. Sodium is 135, potassium 2.7, chloride is 96, bicarb 25, BUN is 41, and creatinine is 1.3. ASSESSMENT AND PLAN: 1. Large abdominal aortic aneurysm measuring about 7.4 cm in transverse diameter as well as 7.4 cm in AP diameter. There was a large thrombus along the anterior wall measuring about 2.5 cm in greatest thickness. This case was discussed with the Vascular Team at [facility], and the patient will now be transferred to [facility] in [place] for further management. 2. Hypokalemia. Replace potassium level. 3. Acute kidney injury. Improving with intravenous hydration. 4. Atrial fibrillation. Continue rate controlling agent. Coumadin was placed on hold because of raised INR level. 5. COPD. Continue nebulized bronchodilators as needed. 6. Deep vein thrombosis prophylaxis. Sequential compression devices. 7. Gastrointestinal prophylaxis. Proton pump inhibitor. 8. Disposition. The patient will be transferred to [facility] in [place] on the vascular surgical team once a bed is available. Transfer paper has been signed. cc: Reid Scott MD
[2018-11-28] MEDS: XANAX PO SCH (20:44)
[2018-11-28] MEDS ORDERED: KLOR-CON POWDER PACKET PO SCH (21:00)
[2018-11-29 04:16] VITALS: BP 113/86
[2018-11-29] MEDS ORDERED: PROTONIX IV SCH (18:00)
--- NOTE | 2018-12-06 14:17 | DISCHARGE SUMMARY ---
ADMISSION DATE: 11/26/2018 DISCHARGE DATE: 11/29/2018 PRINCIPAL DIAGNOSIS: Abdominal aortic aneurysm measuring about 7.4 cm in transverse diameter and also 7.4 cm in anterior-posterior diameter. SECONDARY DIAGNOSES: 1. Acute diarrhea. 2. Dehydration. 3. Hypokalemia. 4. Hyponatremia. 5. Acute kidney injury. 6. Bradycardia. 7. Atrial fibrillation. 8. Macular degeneration. 9. Chronic obstructive pulmonary disease. 10. History of lymphoma. 11. Superficial bladder cancer status post resection. DISCHARGE MEDICATIONS: Warfarin 3 mg p.o. daily, lisinopril 10 mg p.o. daily, atenolol/chlorthalidone 20/25 1 daily, Xanax 0.5 mg p.o. at bedtime, digoxin 125 mg p.o. daily, Benadryl 25 mg per in the morning, PreserVision AREDS S2 soft gels one each as directed. CONSULTATIONS DONE DURING THIS HOSPITAL STAY: Braydon Mcmanus MD, Gastroenterology. PROCEDURES DONE DURING THIS HOSPITAL STAY: 1. CT scan of the chest, abdomen, and pelvis 11/26/2018. 2. Head CT 11/26/2018. 3. Abdominal ultrasound 11/28/2018. HOSPITAL COURSE: Mr. Victoriano Melendez is an 88-year-old male who was admitted to the hospital because of acute diarrhea. CT scan of the abdomen showed evidence of a stable, large abdominal aortic aneurysm as well as possible enteritis with fluid throughout multiple small bowel loops as well as colon. The patient was being managed for diarrhea conservatively and was seen by the GI team. The GI Team had planned to do endoscopic studies. However, the patient was also noted to have this large abdominal aortic aneurysm and the family had shown interest in intervention. We did contact with [facility] Vascular Team and they were willing to have the patient come over to be evaluated. The patient was subsequently transferred to [facility] for evaluation of the large abdominal aortic aneurysm. cc: Reid Scott MD
== END 2018-11-29 05:10 | disposition short-term general hospital (02) | DRG 683 ==
LOC: SUPCPDRO → ED 08:59 → EDIPHOLD 13:18 → SUATTDRO 13:18 → 3N 11-27 09:59
PROVIDERS: ATTEND Internal Medicine
CPT/HCPCS: 70450; 71010; 71045; 71250; 74176; 76700; 80048; 80053; 81001; 82270; 82271; 82550; 82553; 83605; 83690; 83735; 84132; 84484; 85025; 85610; 85651; 85730; 86140; 86141; 87040; 87045; 87046; 87177; 87205; 87324; 87449; 88313; 89055; 93005; 96361; 96365; 96366; 96367; 96372; 96375; 99285; A9270; C9113; J1630; J3430; J3480; J3486; J7030; S0164